=== PATIENT | female | born 1955 | race Caucasian/White ===

== ENCOUNTER 2021-10-06 11:40 | Emergency (ER) | payer SELFPAY ==
[~2021-10-06] VITALS: Ht 175.3 cm; Wt 86.2 kg
--- NOTE | 2021-10-06 11:45 | NUR ---
Dr Vuong evaluating the pt.
--- NOTE | 2021-10-06 12:14 | NUR ---
PORTABLE XRAY DONE AT BEDSIDE. PT WAS SEEN AND EVALUATED BY DR THOMPSON.
[2021-10-06] MEDS ORDERED: IBUP-1955 PO (12:56)
[2021-10-06 13:45] VITALS: BP 147/88
--- NOTE | 2021-10-06 13:47 | NUR ---
Patient discharged to home in stable condition. Written and verbal after care instructions given. Patient verbalizes understanding of instructions. Stressed follow up or return to ER for worsening s/s.
== END 2021-10-06 13:47 | disposition home or self-care (01) ==
LOC: ER 11:40
DX: S52.501A Unspecified fracture of the lower end of right radius, initial encounter for closed fracture (principal); W01.0XXA Fall on same level from slipping, tripping and stumbling without subsequent striking against object, initial encounter; Y93.89 Activity, other specified; Y92.89 Other specified places as the place of occurrence of the external cause; Y99.0 Civilian activity done for income or pay
CPT/HCPCS: 73090; 73110; A4663